=== PATIENT | male | born 1995 ===

== ENCOUNTER 2023-02-18 13:55 | Emergency (ER) | payer SELFPAY ==
--- NOTE | 2023-02-18 14:24 | ED GI ---
General Chief Complaint: Abdominal/GI Problems Stated Complaint: ABDOMINAL PAIN Nursing Triage Note: PT TO [facility] 5 BY EMS WITH CC OF UPPER ABD PAIN SINCE THIS AM. PT STATES HE WAS ON HIS WAY TO THIS HOSPITAL HOWEVER, PAIN INCREASED SO HE CALLED EMS. PT DENIES N/V, OR PAIN MEDS. Source of Information: Patient Exam Limitations: No Limitations (YONIS HUITRON) History of Present Illness Date Seen by Provider: Feb 18, 2023 Time Seen by Provider: 14:03 Initial Comments Mr. Levy is a 27 yo M with PMH of intermittent epi-gastric pain following large meals who presents to the ED today via EMS with 5hrs Hx of non-radiating epigastric pain and nausea which was initially 9/10, now 4/10. He endorses similar episodes of pain after he eats large meals and states that he consumed a large steak dinner last night and an egg, milk & meat breakfast this am. He has not taken anything for his Sx, palpation makes the pain worse and resting makes it better. He endorses eructation and transient nausea, but denies F/C/V/D. His last BM was this am and normal for him, he also denies dysuria. Timing/Duration: 4-6 Hours Severity/Quality: Moderate Location: Epigastric Radiation: No Radiation Modifying Factors: Improves With Resting Associated Symptoms: No Back Pain, No Chest Pain, No Diaphoresis, No Fever/Chills; Nausea/Vomiting (Nausea only, no vomiting), Shortness of Air (rapid shallow breathing during pain); No Weakness (YONIS HUITRON) Allergies and Home Medications Allergies Coded Allergies: No Known Drug Allergies (Unverified , 02/18/23) Patient Home Medication List Home Medication List Reviewed: Yes (WILLY QUIÑONEZ MD) Review of Systems Review of Systems Constitutional: No chills, No diaphoresis, No dizziness, No fever, No malaise EENTM: No Eye Pain, No Mouth Pain, No Throat Pain Respiratory: Denies Cough; Shortness of Air (shallow, rapid breathing secondary to pain) Cardiovascular: Denies Chest Pain, Denies Lightheadedness, Denies Palpitations Gastrointestinal: Abdominal Pain (epigastric); Denies Diarrhea; Nausea; Denies Vomiting Genitourinary: Denies Burning, Denies Flank Pain, Denies Hematuria, Denies Pain Musculoskeletal: No back pain, No muscle pain Skin: No lesions, No rash Psychiatric/Neurological: Denies Headache, Denies Numbness, Denies Paresthesia Endocrine: Denies Excessive Sweating, Denies Flushing (YONIS HUITRON) Past Vakcjgq-Uwzjln-[place] Hx Patient Social History Tobacco Use?: No Substance use?: No Alcohol Use?: No Pt feels they are or have been: No (YONIS HUITRON) Immunizations Up To Date Influenza Vaccine Up-to-Date: No; Not Current (YONIS HUITRON) Past Medical History Surgery/Hospitalization HX: DENIES (YONIS HUITRON) Physical Exam Vital Signs Vital Signs - First Documented 02/18/23 13:57 Temp 36.3 Pulse 74 Resp 20 B/P (MAP) 112/78 (89) Pulse Ox 98 O2 Delivery Room Air (WILLY QUIÑONEZ MD) Vital Signs Capillary Refill : Less Than 3 Seconds (YONIS HUITRON) Height/Weight/BMI Height: '" Weight: lbs. oz. kg; BMI Method: General Appearance: WD/WN, no apparent distress HEENT: PERRL/EOMI, normal ENT inspection, TMs normal, pharynx normal Neck: non-tender, full range of motion, supple, normal inspection Respiratory: chest non-tender, lungs clear, normal breath sounds, no respiratory distress, no accessory muscle use Cardiovascular: normal peripheral pulses, regular rate, rhythm, no edema, no gallop, no JVD, no murmur Peripheral Pulses: 2+ Radial Pulses (R), 2+ Radial Pulses (L) Gastrointestinal: normal bowel sounds, soft, no organomegaly, no pulsatile mass, tenderness (epi-gastric) Extremities: normal range of motion, non-tender, normal inspection, no pedal edema, no calf tenderness, normal capillary refill Back: no CVA tenderness, no vertebral tenderness Neurologic/Psychiatric: 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, no motor/sensory deficits, alert, normal mood/affect, oriented x 3 Skin: normal color, warm/dry Lymphatic: no adenopathy (YONIS HUITRON) Progress/Results/Core Measures Results/Orders My Orders Orders - WILLY QUIÑONEZ MD Antacid Suspension (Mylanta Suspension (02/18/23 14:30) Lidocaine 2% Viscous 15 Ml (Xylocaine Vi (02/18/23 14:30) Sucralfate Tablet (Carafate Tablet) (02/18/23 14:30) Ondansetron Injection (Zofran Injectio (02/18/23 14:30) (WILLY QUIÑONEZ MD) Medications Given in ED (WILLY QUIÑONEZ MD) Vital Signs/I&O 02/18/23 02/18/23 13:57 15:30 Temp 36.3 Pulse 74 80 Resp 20 20 B/P (MAP) 112/78 (89) 103/69 Pulse Ox 98 99 O2 Delivery Room Air Room Air (WILLY QUIÑONEZ MD) Blood Pressure Mean: 89 Progress Progress Note : Time: 15:06 Progress Note Patient treated with Zofran 4mg and GI cocktail with complete relief of symptoms. D/c instructions regarding gastritis. Patient stable for discharge. (WILLY QUIÑONEZ MD) Departure Impression Primary Impression: Dyspepsia Disposition: 01 HOME, SELF-CARE Condition: Improved Departure-Patient Inst. Decision time for Depature: 15:06 (WILLY QUIÑONEZ MD) Referrals: [facility] [place] Patient Instructions: Gastritis (DC) Add. Discharge Instructions: Avoid big heavy meals close to bedtime. You can take maalox (over the counter) for upset stomach, acid reducers such as pepcid or Prilosec (over the counter) to help prevent symptoms. Please follow packaging instructions. If you develop a fever, vomiting or worsening pain, please return to the Emergency Department for re-evaluation. Work/School Note: Work Release Form Date Seen in the Emergency Department: Feb 18, 2023 Return to Work: Feb 19, 2023 Verification and Attestation of Medical Student E/M Service A medical student performed and documented this service in my presence. I reviewed and verified all information documented by the medical student and made modifications to such information, when appropriate. I personally performed the physical exam and medical decision making. Willy Quiñonez, Feb 18, 2023,15:11 (WILLY QUIÑONEZ MD) YONIS HUITRON Feb 18, 2023 14:24 WILLY QUIÑONEZ MD Feb 18, 2023 15:11
[2023-02-18] MEDS ORDERED: SUCRALFATE 1 GM (CARAFATE) TAB PO ONE (14:30)
[2023-02-18] MEDS ORDERED: LIDOCAINE 2% VISCOUS 15 ML UDC PO ONE (14:30)
[2023-02-18] MEDS ORDERED: ONDANSETRON 4 MG/2 ML (SDV) Z0FRAN IVP ONE (14:30)
[2023-02-18] MEDS ORDERED: ANTACID SUSP 30 ML UDC (MYLANTA) PO ONE (14:30)
[2023-02-18 15:30] VITALS: BP 103/69
== END 2023-02-18 15:24 | disposition home or self-care (01) ==
LOC: EDSEX 14:00 → ER 14:00
DX: R10.13 Epigastric pain (principal); R11.0 Nausea